=== PATIENT | female | born 1955 | race Caucasian/White ===

== ENCOUNTER → 2024-12-08 | Outpatient (CLI) | payer MEDICARE, SELFPAY ==
--- NOTE | 2024-12-08 12:53 | XR_ITS ---
Examination: Transvaginal ultrasound of the pelvis, complete Technique: Transvaginal sonographic images pelvis performed using murphy scale imaging Exam date and time: December 08, 2024 1506 hrs. Indications: Onset vaginal bleeding beginning yesterday Findings: Uterus 9.4 cm endometrial stripe 16mm Multiple uterine masses, the largest vertebral body 3.4 cm Ovaries obscured by bowel gas Solid left adnexal mass 2.5 x 2.1 x 2.4 cm Impression: Multiple uterine areas of fibroid degeneration Recommend MRI pelvis follow-up pre and postcontrast to assess solid left adnexal mass 2.5 x 2.0 x 2.4 cm.
== END | disposition home or self-care (01) ==
PROVIDERS: PCP Registered Nurse; Referring Provider Registered Nurse; Visit Provider Registered Nurse
DX: D25.9 Leiomyoma of uterus, unspecified (principal)
CPT/HCPCS: 76830

== ENCOUNTER 2024-12-30 13:05 | Outpatient (AMB) | payer MEDICARE, BC, SELFPAY ==
[2024-12-30 13:20] VITALS: BP 147/80; PULSE 91; RESP 18; TEMP 36.2; O2SAT 95; BMI 38.3
--- NOTE | 2024-12-30 13:20 | AMB.GYNCLNOT ---
Vital Signs 12/30/24 13:20 Height 1.51 m Height Method Stated Weight 87.657 kg Weight Measurement Method Standing Scale BMI 38.3 BP 147/80 H Blood Pressure Source Automatic Cuff Blood Pressure Location Left Upper Arm Position Sitting Respiration 18 Pulse 91 Pulse Source Monitor Temp 97.1 F Temp Source Oral Pulse Oximetry (%) 95 Oxygen Delivery Method Room Air Allergies/Home Meds Allergies & Medications Allergies No Known Allergies Allergy (Verified 12/30/24 13:21) Medication Reconciliation Unobtainable 12/30/24 [History Confirmed 12/30/24] Intake Visit Data Collection New Patient or Established: Established Patient (seen at [facility] within 3 years) Reason for Visit:: POST MENOPAUSAL BLEEDING Seen by Clinical Staff ONLY (RN/MA): No Head Bellhop Captain Required: No Do You Feel Safe at Home: Yes Authorities Contacted: N/A PCP or OBGYN visit in last 3 months: Yes Hx Now: No Are you currently on any form of Control: No Pain Present Currently: Yes Pain Scale Used: Christine-Hutson/Numerical Pain scale:: 0 Smoking Status Smoking Status: Never smoker 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 1. Little interest or pleasure in doing things: not at all 2. Feeling down, depressed, or hopeless: not at all Total score: 0 PHQ-9 3. Trouble falling or staying asleep, or sleeping too much: Not at all 4. Feeling tired or having little energy: Not at all 5. Poor appetite or overeating: Not at all 6. Feeling bad about yourself - or that you are a failure or have let yourself or your family down: Not at all 7. Trouble concentrating on things, such as reading the newspaper or watching television: Not at all 8. Moving or speaking so slowly that other people could have noticed? - Or the opposite - being so fidgety or restless that you have been moving around a lot more than usual: not at all 9. Thoughts that you would be better off or of hurting yourself in some way: Not at all Total score: 0 Source: Developed by Drs. Wayne Hernandez, Renetta Cevallos, Beny Jerry and colleagues, with an educational nelly from [employer]. Depression screen completed yes Social History Living Situation History Marital Status: Lives With: Family Housing: House Tobacco History Smoking Status: Never smoker Second Hand Smoke Exposure: No Alcohol History Alcohol Intake: Never Substance Use History Substance Use: NONE Domestic Abuse History Do You Feel Safe at Home: Yes Past Medical History Past Medical History Have you ever been diagnosed with any of the following: Neurological Problems Cerebrovascular Accident (CVA): No Transient Ischemic Attacks (TIA): No Dementia: No Cardiology Problems Myocardial Infarction: No Cardiac Arrhythmia: No Atrial Fibrillation: No Angina: No Respiratory Problems Chronic Obstructive Pulmonary Disease (COPD): No Asthma: No Bronchitis: No Emphysema: No Stomache/Intestinal Problems Liver Cancer: No Hepatitis: No Cirrhosis: No Genital/Urinary Problems Chronic Kidney Disease: No Renal Disease: No Kidney Stones: No Polycystic Kidney Disease: No Neurogenic Bladder: No Reproductive Problems Breast Cancer: No Endometriosis: No Fibroids: No Genital Herpes: No Musculoskeletal Problems Muscular Dystrophy: No Myasthenia Gravis: No Marfan's Syndrome: No Bone Cancer: No Head,Eye,Nose,Throat Problems Cataracts: No Glaucoma: No Blind: No Retinal Detachment: No Macular Degeneration: No Chronic Ear Infections: No Deafness: No Eye Prosthesis: No Endocrine Problems Diabetes Mellitus Type 1: No Diabetes Mellitus Type 2: No Hypoglycemia: No [place]'s Syndrome: No Pigeon's Disease: No Blood Problems Anemia: No Leukemia: No Hemophilia: No Psychologic Problems Schizophrenia: No Recreational Drug Use: No Bipolar Disorder: No Depression: No Anxiety: No Other Problems Hospitalization: No Autoimmune Disease: No Down Syndrome: No Autism: No Developmental Delay: No Cosmetic Surgery: No Surgical History Angioplasty: No Appendectomy: No Bariatric Surgery: No Breast Surgery: No Cancer Surgery: No History of Present Illness HPI Narrative 69-year-old female presents with postmenopausal bleeding. Patient reports experiencing bright red bleeding like a period approximately two weeks ago. She had previously undergone menopause, with her last regular period occurring on her anniversary. About a year after menopause, she experienced a brief episode of dark brown bleeding. The patient had polyps removed around age 64 or [address] Dunbar at [facility]. She denies any other episodes of postmenopausal bleeding since then until the recent event. Following the recent bleeding episode, the patient consulted her primary care physician at Dr. Morrow's office, who ordered an ultrasound. The ultrasound, performed on 12-08-24, revealed a uterus measuring 9.4 cm with a thickened endometrial stripe of 16 mm, multiple uterine masses with the largest measuring 3.4 cm, and a solid left adnexal mass measuring 2.5 cm. The patient reports no further bleeding since the initial episode two weeks ago. Review of Systems Review of Systems Systems Reviewed: All systems reviewed, normal except as documented Exam General Limitations: no limitations General Appearance: alert, in no apparent distress, comfortable, cooperative, healthy appearing, well developed and well groomed Head Head exam: atraumatic, normocephalic and normal inspection Chest Chest inspection: Present normal inspection and symmetric chest wall rise Abdominal Abdominal exam: Present soft and normal bowel sounds Psych Psychiatric exam: Present normal affect and normal mood Skin Skin exam: Present warm, dry, intact and normal color Assessment & Plan Diagnosis / Problem List (1) Post-menopausal bleeding: Status: Acute Plan Postmenopausal bleeding 69-year-old female presents with recent episode of bright vaginal bleeding, occurring approximately 2 weeks ago. Patient reports history of menopause with last regular menses at age 56. Previous episode of postmenopausal bleeding at age [age] resulted in polyp removal. Recent ultrasound on 12-08-24 showed thickened endometrial stripe (16 mm), multiple uterine masses (largest 3.4 cm), and a solid left adnexal mass (2.5 cm). Primary concern is to rule out uterine and ovarian malignancy. - Endometrial biopsy to be performed in hospital under sedation with hysteroscopy - CA-125 blood test ordered - CT scan without contrast to be scheduled - Patient to arrange transportation home post-procedure - Procedure approval to be obtained - Follow-up appointment to be scheduled after test results Medical Decision Making Taisha Tello is a 69-year-old female with a history of postmenopausal polyp removal presenting with recent postmenopausal bleeding. The primary concern is ruling out uterine and ovarian cancer. Ultrasound findings revealed a thickened endometrial stripe (16 mm), multiple uterine masses (largest 3.4 cm), and a solid left adnexal mass (2.5 cm), necessitating further evaluation. An endometrial biopsy is required to assess for uterine cancer, while a CA-125 blood test will be performed to evaluate the ovarian mass. A CT scan without contrast is preferred over MRI for better ovarian imaging. The complexity of the case is increased by the presence of both uterine and adnexal masses, requiring a comprehensive approach to rule out malignancy in both locations. The patient's preference for a hospital-based hysteroscopic biopsy under sedation was considered in the decision-making process, allowing for targeted biopsies and direct visualization of the uterine cavity. Additional Plan Follow Up: 2 Weeks Advanced Care Planning Advance care planning discussed with:: other Office Procedures OB Clinic LOC & Office Proc's Nursing/Assessment Patient Status: Established Patient OB Clinic Nursing Assessment: Medication Reconciliation, Update PMH in EMR and Vital Signs OB Clinic Coordination of Care: Complex Care and Chronic Disease 1-5, Consent,records obtained, informed consent, Education Simp Pt/Fam, Lab and Imaging orders, Results/Orders obtained and Staff clarify orders Established Patient Charge Established Patient Point Assignment: 105 Established Patient Point Charge: EP Level 3 (80-115)
== END 2024-12-30 14:25 | disposition home or self-care (01) ==
LOC: HODSOBC 13:05
PROVIDERS: PCP Registered Nurse; Referring Provider Registered Nurse; Supervising Provider Obstetrics & Gynecology; Visit Provider Obstetrics & Gynecology
DX: N95.0 Postmenopausal bleeding (principal); R19.00 Intra-abdominal and pelvic swelling, mass and lump, unspecified site
CPT/HCPCS: 99213; G0463

== ENCOUNTER → 2025-01-19 | Outpatient (CLI) | payer MEDICARE, BC, SELFPAY ==
--- NOTE | 2025-01-19 11:08 | XR_ITS ---
Examination: CT abdomen with intravenous contrast CT pelvis with intravenous contrast 2-D coronal reconstructions 2-D sagittal reconstructions Date and time of exam:January 19, 2025 1114 hours INDICATIONS: Postmenopausal bleeding episodes, transvaginal pelvic sonogram December 08, 2024 multiple uterine areas of fibroid degeneration, solid left adnexal mass 2.5 x 2.4 cm. CTDI: vol (mGy) 11.8 DLP: (mGycm) 633 Technique: Multiple axial sections of the abdomen and pelvis have been obtained. 64 slice high-resolution scanner used. 3 mm axial sections have been obtained, post intravenous injection 60 cc [id number] 2-D sagittal, coronal reconstructions obtained. Low dose protocols were performed. One or more of the following dose reduction techniques were used; automated exposure control, adjustment of the mA and/or KV according to patient size, use of iterative reconstruction technique. Findings: No focal liver or splenic lesions Multiple gallstones No pancreatic or adrenal mass Mild to moderate bilateral renal parenchymal scar formation Aortic calcification no aneurysmal dilatation Normal appendix Tiny fat-containing umbilical hernia Colonic diverticulosis, no diverticulitis 4.6 cm calcified uterine fundal mass 26 mm uterine fundal mass 14 mm uterine fundal mass No cervical mass Ovaries are not enlarged IMPRESSION: Multiple uterine areas of probable fibroid degeneration as above
== END | disposition home or self-care (01) ==
PROVIDERS: Referring Provider Obstetrics & Gynecology; Visit Provider Obstetrics & Gynecology
DX: R19.00 Intra-abdominal and pelvic swelling, mass and lump, unspecified site (principal); N95.0 Postmenopausal bleeding
CPT/HCPCS: 74177; A4649; Q9967

== ENCOUNTER → 2025-01-19 | Outpatient (CLI) | payer MEDICARE, BC, SELFPAY ==
[2025-01-19 10:53] LABS: Alanine Aminotransferase 16 U/L (10-49); Albumin, Serum 4.4 gm/dL (3.4-4.8); Albumin/Globulin Ratio 1.7 (1.2-2.2); Alkaline Phosphatase 74 U/L (46-116); Anion Gap 6 (7-16); Aspartate Amino Transferase 17 U/L (0-34); BUN/Creatinine Ratio 21 Ratio (12-20); Bilirubin,Total 0.4 mg/dL (0.3-1.2); Blood Urea Nitrogen 19 mg/dL (9-23); Calcium 9.8 mg/dL (8.3-10.6); Calcium (Corrected) 9.8 mg/dL (8.5-10.1); Carbon Dioxide 29.5 mMol/L (20.0-31.0); Chloride 106 mMol/L (98-107); Creatinine (Component) 0.9 mg/dL (0.6-1.3); Globulin 2.6 gm/dL (2.3-3.5); Glucose 95 mg/dL (74-106); Osmolality,Calculated 283 (275-295); Potassium 4.4 mMol/L (3.4-5.1); Sodium 141 mMol/L (136-145); eGFR > 60 See Note
== END | disposition home or self-care (01) ==
PROVIDERS: PCP Family Medicine
DX: R19.00 Intra-abdominal and pelvic swelling, mass and lump, unspecified site (principal); N95.0 Postmenopausal bleeding
CPT/HCPCS: 36415; 80053; 86304

== ENCOUNTER 2025-01-25 16:13 | Outpatient (AMB) | payer MEDICARE, BC, SELFPAY ==
--- NOTE | 2025-01-25 16:02 | AMB.GYNCLNOT ---
Allergies/Home Meds Allergies & Medications Allergies No Known Allergies Allergy (Verified 01/25/25 16:02) Medication Reconciliation Unobtainable 12/30/24 [History Confirmed 01/25/25] Intake Visit Data Collection New Patient or Established: Established Patient (seen at [facility] within 3 years) Reason for Visit:: DISCUSS LABS AND CT RESULTS Consent obtained for Telemed Visit: Yes Seen by Clinical Staff ONLY (RN/MA): No Lance Crewmember/Mlrs Sergeant Required: No Do You Feel Safe at Home: Yes Authorities Contacted: N/A PCP or OBGYN visit in last 3 months: Yes Hx Now: No Pain Present Currently: No Pain Scale Used: Christine-Hutson/Numerical Pain scale:: 0 Smoking Status Smoking Status: Never smoker For Telemed visit only Telemed Video/Phone Visit: Yes Verbal consent obtained for Telemed visit?: Yes Verbal Consent witness name: MARICRUZ AHUJA Scott PHQ-9 PHQ-2 Over the last 2 weeks, how often have you been bothered by any of the following problems? 1. Little interest or pleasure in doing things: not at all PHQ-9 8. Moving or speaking so slowly that other people could have noticed? - Or the opposite - being so fidgety or restless that you have been moving around a lot more than usual: not at all Source: Developed by Drs. Wayne Hernandez, Renetta Cevallos, Beny Jerry and colleagues, with an educational nelly from [employer]. Social History Living Situation History Lives With: Family Housing: House Tobacco History Smoking Status: Never smoker Second Hand Smoke Exposure: No Alcohol History Alcohol Intake: Never Substance Use History Substance Use: NONE Domestic Abuse History Do You Feel Safe at Home: Yes Past Medical History Past Medical History Have you ever been diagnosed with any of the following: Neurological Problems Cerebrovascular Accident (CVA): No Transient Ischemic Attacks (TIA): No Dementia: No Cardiology Problems Myocardial Infarction: No Cardiac Arrhythmia: No Atrial Fibrillation: No Angina: No Respiratory Problems Chronic Obstructive Pulmonary Disease (COPD): No Asthma: No Bronchitis: No Emphysema: No Stomache/Intestinal Problems Liver Cancer: No Hepatitis: No Cirrhosis: No Genital/Urinary Problems Renal Disease: No Kidney Stones: No Polycystic Kidney Disease: No Neurogenic Bladder: No Reproductive Problems Breast Cancer: No Endometriosis: No Fibroids: No Genital Herpes: No Musculoskeletal Problems Muscular Dystrophy: No Myasthenia Gravis: No Marfan's Syndrome: No Bone Cancer: No Head,Eye,Nose,Throat Problems Cataracts: No Glaucoma: No Blind: No Retinal Detachment: No Macular Degeneration: No Chronic Ear Infections: No Deafness: No Eye Prosthesis: No Endocrine Problems Diabetes Mellitus Type 1: No Diabetes Mellitus Type 2: No Hypoglycemia: No Bianca's Syndrome: No Severo's Disease: No Blood Problems Anemia: No Leukemia: No Hemophilia: No Psychologic Problems Schizophrenia: No Recreational Drug Use: No Bipolar Disorder: No Depression: No Anxiety: No Other Problems Hospitalization: No Down Syndrome: No Autism: No Developmental Delay: No Cosmetic Surgery: No Surgical History Angioplasty: No Appendectomy: No Bariatric Surgery: No Breast Surgery: No Cancer Surgery: No History of Present Illness HPI Narrative Taisha Tello, a 69-year-old female, presents for follow-up and lab results. She has a history of previous surgical intervention by a former [employer] physician and multiple uterine fibroids. The patient was previously recommended to return with CA125 and CT scan results. She denies any new episodes of bleeding since her last visit. The patient reports experiencing some pain related to her fibroids, but the extent of its impact on her daily functioning is not clearly specified. No other symptoms or complaints are mentioned. Review of Systems Genitourinary: Negative for new episodes of bleeding. Results Objective Laboratory: - CA125: Negative Imaging: - CT scan (01/19/2025): - Multiple uterine fibroids: - 4.6 cm fundal fibroid - 2.6 cm fundal fibroid - 1.4 cm fundal fibroid - Liver and spleen: normal - Gallstones present - Pancreas: normal - Aorta: normal - Appendix: normal - Tiny umbilical hernia - Colonic diverticulosis Assessment & Plan Diagnosis / Problem List (1) Pelvic mass in female: Status: Acute (2) Post-menopausal bleeding: Status: Acute (3) Asymptomatic cholelithiasis: Status: Acute (4) Umbilical hernia: Status: Acute (5) Acquired diverticulosis of colon: Status: Acute Plan Taisha Tello, a 69-year-old female with a history of previous surgical intervention by a previous [employer] physician, presents for follow-up and lab results regarding multiple uterine fibroids. Multiple uterine fibroids Assessment: CT scan performed on 01/19/2025 confirms the presence of multiple uterine fibroids, consistent with previous ultrasound findings. Three separate fibroids were identified in the fundus of the uterus, measuring 4.6 cm, 2.6 cm, and 1.4 cm respectively. The fibroids appear to be undergoing liquefaction or degeneration. CA125 blood test for tumor markers was negative. Given the patient's postmenopausal status and the absence of recent bleeding episodes, these fibroids are likely self-limiting and not indicative of malignancy or future bleeding risk. Plan: - Watchful waiting approach - Repeat CT scan in 3 months to monitor fibroid progression - Follow up in 3 months to reassess condition - Consider hysterectomy if patient experiences: - Another episode of bleeding - Significant pain interfering with daily activities - Rapid growth of fibroids Cholelithiasis Assessment: Incidental finding of gallstones on CT scan. Patient is currently asymptomatic, with no evidence of gallbladder inflammation or biliary obstruction. Plan: - No intervention required at this time due to asymptomatic nature - Monitor for symptoms of biliary colic or cholecystitis Colonic diverticulosis Assessment: Incidental finding of colonic diverticulosis on CT scan. Patient is currently asymptomatic. Plan: - Recommend increased fiber intake - Educate patient on symptoms of diverticulitis (abdominal pain, constipation, diarrhea) - Advise patient to seek medical attention if symptoms develop, as antibiotic treatment may be necessary Umbilical hernia Assessment: CT scan revealed a very tiny umbilical hernia. No mention of symptoms or complications. Plan: - No specific intervention planned at this time - Monitor for changes or symptoms Advanced Care Planning Advance care planning discussed with:: patient Office Procedures OB Clinic LOC & Office Proc's Nursing/Assessment Patient Status: Established Patient OB Clinic Nursing Assessment: Medication Reconciliation and Update PMH in EMR OB Clinic Coordination of Care: Complex Care and Chronic Disease 1-5, Consent,records obtained, informed consent, Education Simp Pt/Fam, Results/Orders obtained and Staff clarify orders Established Patient Charge Established Patient Point Assignment: 75 Telehealth If patient is seen using Teleconference methods, complete New/Est section, but DO NOT gi points only gi the correct Telemed visit type Telemed Phone/Video with patient at home & Dr,PA,MULTIPLE SPINDLE ROUTER OPERATOR: Yes
== END 2025-01-25 16:52 | disposition home or self-care (01) ==
LOC: HODSOBC 16:13
PROVIDERS: Supervising Provider Obstetrics & Gynecology; Visit Provider Obstetrics & Gynecology
DX: D25.9 Leiomyoma of uterus, unspecified (principal); N95.0 Postmenopausal bleeding; K80.20 Calculus of gallbladder without cholecystitis without obstruction; K42.9 Umbilical hernia without obstruction or gangrene; K57.30 Diverticulosis of large intestine without perforation or abscess without bleeding
CPT/HCPCS: 99212; G0463

== ENCOUNTER → 2025-02-25 | Outpatient (CLI) | payer MEDICARE, BC, SELFPAY ==
[2025-02-25 08:07] LABS: Collection Type, Urine Clean Catch
[2025-02-25 08:44] LABS: Basophils % (Auto) 1 % (0-2.5); Eosinophils # (Auto) 0.1 Thou/mm3 (0.0-0.5); Eosinophils % (Auto) 1 % (0-10); Hematocrit 42.4 % (36.0-46.0); Hemoglobin 14.5 g/dL (12.0-16.0); Immature Granulocytes % (Auto) 0 % (0-0); Immature Granulocytes Auto 0.03 Thou/mm3 (0.00-0.00); Lymphocytes # (Auto) 1.5 Thou/mm3 (1.0-4.8); Lymphocytes % (Auto) 21 % (10-50); Mean Corpuscular HGB Conc 34.2 g/dl (31.0-37.0); Mean Corpuscular Hemoglobin 29.8 pg (25.0-35.0); Mean Corpuscular Volume 87 fL (80-100); Monocytes # (Auto) 0.4 Thou/mm3 (0.0-0.8); Monocytes % (Auto) 5 % (0-12); Neutrophils # (Auto) 4.8 Thou/mm3 (1.8-7.7); Neutrophils % (Auto) 71 % (37-80); Nucleated Red Blood Cell % 0 /100 WBC (0); Platelet Count 277 Thou/mm3 (140-440); RDW Standard Deviation 40.4 fL (36.4-46.3); Red Blood Count 4.87 Miln/mm3 (4.00-5.20); White Blood Count 6.8 Thou/mm3 (3.6-11.0)
[2025-02-25 08:48] LABS: Glucose Estimated Average 117 mg/dL (80-131); Hemoglobin A1C 5.7 % Hgb (4.8-6.0)
[2025-02-25 08:51] LABS: Bacteria,Urine 1+; Bilirubin,Urine Negative (Negative); Blood,Urine Trace (Negative); Color,Urine Lt-Yellow (Lt Yel-Yel); Culture Indicated,Urine Contaminated; Glucose, Urine Negative (Negative); Ketones,Urine Negative (Negative); Leukocyte Esterase,Urine Positive (Negative); Nitrite,Urine Negative (Negative); Protein,Urine Trace (Neg - Trace); RBC,Urine 3 /hpf (0-3); Specific Gravity,Urine 1.023 (1.001-1.035); Squamous Epithelial Cell,Urine 37 /hpf (0-5); Urobilinogen,Urine Negative mg/dL (0.0-1.0); WBC,Urine 60 /hpf (0-5)
[2025-02-25 09:00] LABS: Clarity,Urine Hazy (Clear/Hazy)
[2025-02-25 09:00] LABS: Alanine Aminotransferase 17 U/L (10-49); Albumin, Serum 4.3 gm/dL (3.4-4.8); Albumin/Globulin Ratio 1.7 (1.2-2.2); Alkaline Phosphatase 71 U/L (46-116); Anion Gap 11 (7-16); Aspartate Amino Transferase 19 U/L (0-34); BUN/Creatinine Ratio 25 Ratio (12-20); Bilirubin,Total 0.4 mg/dL (0.3-1.2); Blood Urea Nitrogen 20 mg/dL (9-23); Calcium 9.2 mg/dL (8.3-10.6); Calcium (Corrected) 9.2 mg/dL (8.5-10.1); Carbon Dioxide 29.2 mMol/L (20.0-31.0); Chloride 105 mMol/L (98-107); Cholesterol 277 mg/dL (132-200); Creatinine (Component) 0.8 mg/dL (0.6-1.3); Globulin 2.5 gm/dL (2.3-3.5); Glucose 107 mg/dL (74-106); HDL Cholesterol 46 mg/dL (40-60); LDL Cholesterol,Calculated 169 mg/dL (0-130); Osmolality,Calculated 291 (275-295); Potassium 4.5 mMol/L (3.4-5.1); Sodium 145 mMol/L (136-145); Thyroid Stimulating Hormone 3.54 uIU/mL (0.55-4.78); Total Protein 6.8 gm/dL (5.7-8.2); Triglycerides 309 mg/dL (30-150); eGFR > 60 See Note
== END | disposition home or self-care (01) ==
PROVIDERS: PCP Registered Nurse; Referring Provider Registered Nurse; Visit Provider Registered Nurse
DX: Z00.00 Encounter for general adult medical examination without abnormal findings (principal); E78.2 Mixed hyperlipidemia; I10 Essential (primary) hypertension
CPT/HCPCS: 36415; 80053; 80061; 81001; 82306; 83036; 84443; 85025

== ENCOUNTER → 2025-03-01 | Outpatient (CLI) | payer MEDICARE, BC, SELFPAY ==
[2025-03-07 06:43] LABS: Fecal Globin Result DETECTED (NOT DETECTED)
== END | disposition home or self-care (01) ==
LOC: SLDO 11:54
PROVIDERS: PCP Registered Nurse; Referring Provider Registered Nurse; Visit Provider Registered Nurse
DX: Z12.11 Encounter for screening for malignant neoplasm of colon (principal)
CPT/HCPCS: 82274; G0328

== ENCOUNTER → 2025-04-08 | Outpatient (CLI) | payer MEDICARE, BC, SELFPAY ==
--- NOTE | 2025-04-08 10:30 | XR_ITS ---
Examination: Screening digital mammography, bilateral Computer aided detection 3-D breast Tomosynthesis, bilateral Date and time of exam: April 08, 2025 1016 hours Compared to mammograms dating to October 29, 2006 Indication: Screening Technique: Nonmagnified MLO, CC views of the breasts to been obtained, reconstructed from 3-D Tomosynthesis images. R2 computer aided detection program utilized for evaluation of suspicious masses and/or abnormal calcifications. 3-D Tomosynthesis images obtained. Findings: Scattered areas of fibroglandular density. More dense focal asymmetry upper outer right breast which may representing glandular tissue Impression: BI-RADS Category 0: Incomplete: Need additional imaging evaluation Recommend follow-up spot tomographic views of focal asymmetry upper outer right breast as well as right breast sonography to complete the workup
== END | disposition home or self-care (01) ==
LOC: CDIM 10:04
PROVIDERS: PCP Registered Nurse; Referring Provider Registered Nurse; Visit Provider Registered Nurse
DX: Z12.31 Encounter for screening mammogram for malignant neoplasm of breast (principal); N64.89 Other specified disorders of breast
CPT/HCPCS: 77063; 77067

== ENCOUNTER 2025-05-11 09:50 | Day surgery (SDC) | payer MEDICARE, BC, SELFPAY ==
[2025-05-10 11:28] VITALS: BMI 37.3
[2025-05-11] VITALS (12 sets, daily range): BP systolic 142–219; BP diastolic 77–153; PULSE 90–98; RESP 13–21; TEMP 36.3–36.9; O2SAT 94–99; BMI 36.7
[2025-05-11] MEDS: BENZOCAINE 20% (Hurricaine) SPRAY 1 DOSE TOP (11:54)
[2025-05-11] MEDS: hydrALAZINE INJ 20 MG/ML VIAL 10 MG IVP ×2 (11:57→12:10)
[2025-05-11] MEDS: ONDANSETRON INJ 2 MG/ML INJ 2 ML 4 MG IVP (12:05)
[2025-05-11] MEDS: SODIUM CHLORIDE 0.9% 500 ML 500 ML 20 ML IV (12:06)
[2025-05-11] MEDS: MIDAZOLAM INJ 1 MG/ML VIAL 2 ML (ASD USE ONLY) 2 MG IVP (12:06)
[2025-05-11] MEDS: fentaNYL CIT INJ 50 mCg/ML AMP 2ML (ASD USE ONLY) IVP (12:06)
== END 2025-05-11 13:10 | disposition home or self-care (01) ==
PROVIDERS: PCP Family Medicine; Referring Provider Specialist; Visit Provider Specialist
PROC: 0DBE8ZX Excision of Large Intestine, Via Natural or Artificial Opening Endoscopic, Diagnostic (ICD-10-PCS; CPT 45380; principal; 2025-05-11 10:30)
PROC: (CPT 43239; 2025-05-11 10:30)
DX: K64.9 Unspecified hemorrhoids (principal); R19.5 Other fecal abnormalities; I10 Essential (primary) hypertension
CPT/HCPCS: 45378; J0360; J1200; J2250; J2405; J3010; J7999; A9270